=== PATIENT | male | born 1985 | race Caucasian/White ===

== ENCOUNTER 2022-04-05 16:29 | Emergency (ER) | payer OTHER, SELFPAY ==
--- NOTE | ~2022-04-05 | XR_ITS ---
EXAMINATION: XR chest 2V Exam Date/Time: 04/05/2022 16:53 CDT HISTORY: cough X 4days,productive cough,vapes Comparison: None available. RESULT: Lines, tubes, and devices: None. Lungs and pleura: Clear. Cardiomediastinal silhouette: Normal. Other: No acute osseous or upper abdominal finding. IMPRESSION: No acute cardiopulmonary process. Reviewed, dictated and finalized at location K.
[2022-04-05 16:39] VITALS: BP 152/90; PULSE 86; RESP 20; TEMP 36.6; O2SAT 98
--- NOTE | 2022-04-05 16:55 | ED.URI ---
HPI - URI/Sore Throat General Chief Complaint: Upper Respiratory Infection Stated Complaint: Sore Throat,Cough,Congestion Time Seen by Provider: 04/05/22 16:50 History of Present Illness HPI Narrative: Petr Cardona is a 36 yo male with PMH of COVID in December [facility] complaining of severe sore throat and difficulty swallowing and a cough which wakes him up. Symptoms present Last day or 2 and is afebrile; no nausea, vomiting, diarrhea. Has not had covid vaccine Related Data Allergies Allergy/AdvReac Type Severity Reaction Status Date / Time Penicillins AdvReac Mild Hives Verified 04/05/22 16:50 Review of Systems Review of Systems: CONSTITUTIONAL: Denies fever, chills, sweats. EYES: Denies visual changes, redness, discharge. ENT: Denies rhinorrhea, has congestion, has sore throat, otalgia. CARDIOVASCULAR: Denies chest pain, palpitations, edema. RESPIRATORY: Denies dyspnea, wheezing, has cough GASTROINTESTINAL: Denies abdominal pain, nausea, vomiting, diarrhea. GENITOURINARY: Denies dysuria, hematuria, abnormal discharge SKIN: Denies rash or itching. NEUROLOGIC: Denies numbness, or focal weakness. PSYCHIATRIC: Denies anxiety or depression. [facility] Past Medical History Medical History (Updated 04/05/22 @ 17:18 by Natalia Guallpa CNP) Anxiety Hematochezia Obesity Family History Family History Grandparent Family history of type 2 diabetes mellitus Social History Social History Smoking status: Never smoker Alcohol intake: current Substance use: never Substance use type: does not use Gender identity (if verbalized by the patient): Male Comments At time of signature, I agree with nursing past medical, surgical, social and family history. There is no relevant family history pertinent to the presenting complaint. Pressure is elevated at this visit; his primary care doctor and is being observed for multiple potential issues Exam Narrative: GENERAL: This is a well-nourished, well-developed patient, in mild distress. Patient is obese HEAD: normocephalic, atraumatic. EYES: Sclera clear/white. Vision is grossly intact. EARS: External ears normal, auditory canals clear and without drainage, TMs normal without perforation. Hearing grossly intact. NOSE: External nose normal with nasal discharge, nares without redness, has rhinorrhea. THROAT: Mucous membranes moist, posterior pharynx erythema NECK: Neck supple, non-tender CARDIOVASCULAR: Regular rate and rhythm without murmurs, gallops, or rubs. RESPIRATORY: Diminished to auscultation. Breath sounds equal bilaterally. No wheezes, rales, or rhonchi. GASTROINTESTINAL: Not done SKIN: warm, intact with no suspicious lesions or rash, good texture and turgor. NEURO: awake, alert, and oriented to person, place and time. There were no obvious focal neurologic abnormalities. Steady gait EXTREMITIES: Normal range of motion. BACK: Nontender without deformity Course Course Emergency Course: Patient here with cough and congestion and sore throat since yesterday Strep done which is negative COVID - negative Chest x-ray-no acute cardiopulmonary process, cardiomediastinal silhouette normal lung and pleura clear Treat with steroids, albuterol inhaler, Zithromax. ranjan perkins Level of Care: Express Care Visit Vital Signs Vital signs: Vital Signs Temperature 97.9 F 04/05/22 16:39 Pulse Rate 86 04/05/22 16:39 Respiratory Rate 20 04/05/22 16:39 Blood Pressure 152/90 H 04/05/22 16:39 Pulse Oximetry 98 04/05/22 16:39 Oxygen Delivery Room Air 04/05/22 16:39 Temperature 97.9 F 04/05/22 16:39 Pulse Rate 86 04/05/22 16:39 Respiratory Rate 20 04/05/22 16:39 Blood Pressure 152/90 H 04/05/22 16:39 Pulse Oximetry 98 04/05/22 16:39 Oxygen Delivery Room Air 04/05/22 16:39 MDM - URI/Sore Throat Differential
== END 2022-04-05 17:32 | disposition home or self-care (01) ==
PROVIDERS: Emergency Provider Nurse Practitioner; PCP Family Medicine
DX: J20.9 Acute bronchitis, unspecified (principal); J02.9 Acute pharyngitis, unspecified; Z20.822 Contact with and (suspected) exposure to COVID-19; E66.9 Obesity, unspecified; Z68.41 Body mass index [BMI] 40.0-44.9, adult
CPT/HCPCS: 71046; 87081; 87426; 87880; 99213; C9803; G0463

== ENCOUNTER 2023-04-15 15:21 | Emergency (ER) | payer BC, SELFPAY ==
[2023-04-15 15:28] VITALS: BP 138/77; PULSE 119; RESP 20; TEMP 35.8; O2SAT 96
--- NOTE | 2023-04-15 15:38 | ED.SKABFB ---
HPI - Skin/Abscess/Foreign Bdy General Chief complaint: Dental/Oral Stated complaint: Swollen Lip and Jaw,Mouth Sores Time Seen by Provider: 04/15/23 15:24 Source: patient Mode of arrival: ambulatory Limitations: no limitations History of Present Illness HPI narrative: 37-year-old male presents to [facility] with complaint of pain and swelling to his upper gums for the past 2 days. Patient denies fever, body aches or chills. Patient reports that he has not established with a local dentist. Patient has been completing a string gargles and taking [id number] ibuprofen with minimal relief. Patient is a smoker Onset (ago): day(s) (2) Relieving factors: none Exacerbating factors: none Associated symptoms: denies other symptoms Related Data Home Medications Medication Instructions Recorded Confirmed sildenafil 25 mg tablet 25 mg PO DAILY PRN Erectile 04/10/23 04/15/23 Dysfunction Allergies Allergy/AdvReac Type Severity Reaction Status Date / Time Penicillins AdvReac Mild Hives Verified 04/15/23 15:24 Review of Systems Constitutional: Constitutional: Denies chills, Denies fatigue, Denies fever(s) and Denies weakness ENT: Denies vertigo, Denies dizziness, Denies epistaxis and Denies nasal congestion Comments: Upper gum pain and swelling Respiratory: Respiratory: Denies chest congestion, Denies cough, Denies dyspnea and Denies wheezing Gastrointestinal: Gastrointestinal: Denies diarrhea, Denies nausea and Denies vomiting Integumentary/Breasts: Skin/Breast: Denies rash Neurologic: Denies vertigo, Denies dizziness, Denies syncope and Denies headache(s) [facility] Past Medical History Medical History (Updated 04/15/23 @ 15:45 by Antoinette Decker APRN) Anxiety Hematochezia Obesity Family History Family History Grandparent Family history of type 2 diabetes mellitus Social History Social History Smoking status: Current every day smoker Tobacco type: cigarettes Smokeless tobacco user: dissolvable tobacco Alcohol intake: current Substance use: never Substance use type: does not use Lack of Transportation: No Lack of Food: Never True Current Housing: I Have Housing Concerned About Future Housing: No Difficulty Paying Gas/Electric Bills: No Difficulty Paying for Meds: No Currently Unemployed: No Education: Trade/Vocational Certificate Difficulty w/ Childcare or Family Care: No Living arrangements: with family Occupation/Education: occupation Gender identity (if verbalized by the patient): Male Comments At time of signature, I agree with nursing past medical, surgical, social and family history. There is no relevant family history pertinent to the presenting complaint. Exam Const: General: healthy appearing and no acute distress Nutritional Appearance: well nourished Orientation/consciousness: patient oriented x3 Limitations: no limitations HENMT: Head: normal to inspection Teeth and gingiva: abnormal tooth and associated gingiva Throat: posterior oropharynx normal and uvula midline Other: Poor dentition noted; there is area of erythema and swelling noted to upper gums between 1st and 2nd tooth. No bruising, bleeding or purulent drainage noted Eyes: Conjunctivae: conjunctivae normal Resp: Effort & Inspection: normal respiratory effort and not labored Auscultation: clear to auscultation bilaterally, no crackles, no rales, no rhonchi and no wheezes Cardio: Rate: regular rate Rhythm: regular rhythm Heart sounds: no murmurs Skin: General skin exam: normal color Neuro: Speech: normal speech Gait exam (Neuro): Normal gait present Psych: Affect: normal affect Attitude: cooperative Course Course Level of Care: Express Care Visit Vital Signs Vital signs: Vital Signs Temperature 35.8 C L 04/15/23 15:28 Pulse Rate 119 H 04/15/23
== END 2023-04-15 15:48 | disposition home or self-care (01) ==
PROVIDERS: Emergency Provider Nurse Practitioner Family; PCP Family Medicine
DX: K06.1 Gingival enlargement (principal); F17.210 Nicotine dependence, cigarettes, uncomplicated; E66.9 Obesity, unspecified; Z68.42 Body mass index [BMI] 45.0-49.9, adult
CPT/HCPCS: 99213; G0463

== ENCOUNTER 2023-05-28 10:06 | Outpatient (CLI) | payer BC, SELFPAY ==
--- NOTE | 2023-06-05 19:10 | WPDHOMESLEEP ---
Sleep Study - Home Unattended Date of Study: 05/28/23 Ordering Provider: Dawit Abernathy MD Interpreting Provider: Johanny Mai, DO Home Sleep Study Type: Watch PAT Height: 1.63 m Weight: 124.738 kg Body Mass Index: 47.2 Neck Circumference (inches): 18 [place]: 21 Reason for Sleep Study Witnessed apneas, daytime hypersomnia Sleep History The patient is a 37-year-old male that had a sleep study ordered by his primary care for evaluation of sleep apnea. The patient frequently awakens from sleep short of breath. He occasionally awakens at night with heartburn, belching or cough. He constantly snores loudly enough that others complain. He rarely has trouble sleeping when he has a cold. He frequently wakes up gasping for air throughout the night. He frequently has breathing problems at night observed by himself or others. He rarely sweats excessively at night. He denies having heart palpitations or irregular heartbeats during the night. He constantly falls asleep during the day. He occasionally falls asleep while driving. He denies sleep paralysis and cataplexy. He frequently has trouble at school or work due to sleepiness. He frequently experiences vivid dreamlike scenes upon awakening or falling asleep. He denies feeling afraid of going to sleep. He occasionally has nightmares occasionally remembers his dreams. He rarely has thoughts racing through his mind. He denies feeling sad or depressed. He rarely has anxiety. He denies having muscular tension. He occasionally notices parts of his body jerk. He rarely kicks during the night. He rarely has crawling and aching feelings in his legs and rarely has leg pain during the night. He denies grinding his teeth during sleep and denies awakening with morning jaw pain. He is rarely bothered by pain during the day but never awakened by pain during the night. He frequently wakes up feeling stiff in morning. He goes to bed at 10:00 p.m. on weekdays and at midnight on the weekends. It takes him 20-30 minutes to fall asleep. He wakes up 2-3 times throughout the night to urinate and is able fall back asleep within a few minutes. He wakes up at 6:00 a.m. on weekdays and around 10:00 a.m. on the weekends. He typically gets 5-6 hours of sleep per night. He does not stay in bed after waking up in the morning. He currently lives with his and child. He denies consuming any caffeinated beverages within 2 hours of bedtime. He denies engaging in physical exercise before bedtime. He will watch television before falling asleep. He denies taking naps in the afternoon or the evening. He consumes 2 caffeinated beverages per day. He smokes 1.5 packs of cigarettes per day. He does consume alcohol. He denies recreational drug use. [facility] Past Medical History Medical History (Updated 06/05/23 @ 19:20 by Johanny Mai DO) Anxiety Hematochezia Obesity Family History Family History Grandparent Family history of type 2 diabetes mellitus Social History Social History Smoking status: Current every day smoker Tobacco type: cigarettes Smokeless tobacco user: dissolvable tobacco Alcohol intake: current Substance use: never Substance use type: does not use Lack of Transportation: No Lack of Food: Never True Current Housing: I Have Housing Concerned About Future Housing: No Difficulty Paying Gas/Electric Bills: No Difficulty Paying for Meds: No Currently Unemployed: No Education: Trade/Vocational Certificate Difficulty w/ Childcare or Family Care: No Living arrangements: with family Occupation/Education: occupation Gender identity (if verbalized by the patient): Male Medications Home Medications Medication Instructions Recorded Confirmed Type sildenafil 25 mg tablet 25 mg PO DAILY PRN Erectile 04/10/23 05/01/23 His
[2023-06-05 19:11] VITALS: BMI 47.2
--- NOTE | 2023-09-06 13:49 | SLEEP ---
pt has apap device
== END 2023-05-31 16:00 | disposition home or self-care (01) ==
LOC: ANHCSM 10:07
PROVIDERS: PCP Family Medicine; Visit Provider Family Medicine
DX: G47.10 Hypersomnia, unspecified (principal); G47.33 Obstructive sleep apnea (adult) (pediatric)
CPT/HCPCS: 95800

== ENCOUNTER 2024-02-05 16:48 | Emergency (ER) | payer BC, SELFPAY ==
--- NOTE | ~2024-02-05 | CT_ITS ---
EXAMINATION: CT lumbar spine wo con DATE: 02/05/2024 17:23 INDICATION: low back pain with left sciatica pain- no injury . TECHNIQUE: Computed tomography (CT) of the lumbar spine was performed without intravenous contrast. A utomated exposure control and iterative reconstruction technique were employed. The dose-length produ ct was 1151.56 mGy-cm. COMPARISON: None. FINDINGS: 5 nonrib-bearing lumbar-type vertebral bodies. Partial sacralization of S1, rudimentary dis c at S1-S2. Pedicles intact. 2 mm retrolisthesis at L4-5. Vertebral body heights preserved. Multileve l mild disc space narrowing and moderate marginal osteophytosis. Mild facet sclerosis and hypertrophy throughout the lumbar spine. Moderate central canal narrowing at L4-5 and L5-S1. Moderate bilateral neural foraminal narrowing at L4-5 and L5-S1. 3 mm nonobstructing left upper pole calcification. IMPRESSION: No acute fracture or traumatic malalignment in the lumbar spine. S1 is a transitional element. Multilevel degenerative disc disease and facet arthropathy. Minimal grade 1 retrolisthesis at L4-5. M oderate central canal narrowing and moderate bilateral neural foraminal narrowing at L4-5 and L5-S1. No severe central canal or neural foraminal narrowing. Reviewed, dictated and finalized at location K. IMPRESSION: No acute fracture or traumatic malalignment in the lumbar spine. S1 is a transitional element. Multilevel degenerative disc disease and facet arthropathy. Minimal grade 1 ret rolisthesis at L4-5. Moderate central canal narrowing and moderate bilateral ne ural foraminal narrowing at L4-5 and L5-S1. No severe central canal or neural foraminal narrowing.
[2024-02-05 16:49] VITALS: BP 169/103; PULSE 101; RESP 20; TEMP 36.3; O2SAT 98
--- NOTE | 2024-02-05 17:02 | ED.BACK ---
HPI - Back Pain/Injury General Chief Complaint: Back Pain/Injury Stated Complaint: back pain Time Seen by Provider: 02/05/24 16:57 Source: patient Mode of arrival: ambulatory Limitations: no limitations History of Present Illness HPI Narrative: Petr is a 38-year-old year old male patient presenting to the emergency room complaints of severe back pain since Sunday. He denies any known injury. Is having pain is started on the left side of his low back and now has gone to the middle and right side of his low back. Also reporting numbness and burning sensation down his left leg with numbness over the right great toe. Rates his pain currently a 10/10. Pain is worse with sitting and standing has been taking [id number] medications without relief. Denies any history of past back injury or surgeries. Denies any saddle anesthesia or loss of bowel bladder. Related Data Home Medications Medication Instructions Recorded Confirmed sildenafil 25 mg tablet 25 mg PO DAILY PRN Erectile 04/10/23 09/04/23 Dysfunction Allergies Allergy/AdvReac Type Severity Reaction Status Date / Time Penicillins AdvReac Mild Hives Verified 09/04/23 08:31 Review of Systems Review of Systems: Pertinent positives per HPI. Patient denies any fever, chills, rash, headache, visual changes, dizziness, cough, runny nose, sore throat, shortness of breath, chest pain, palpitations, nausea, vomiting, diarrhea, constipation, abdominal pain, or any urinary issues. [facility] Past Medical History Medical History Anxiety BMI 50.0-59.9, adult Hematochezia Obesity Family History Family History Grandparent Family history of type 2 diabetes mellitus Father No problems noted. Mother No problems noted. Sibling No problems noted. Social History Social History Smoking status: Current every day smoker Tobacco type: cigarettes Smokeless tobacco user: dissolvable tobacco Alcohol intake: current Substance use: never Substance use type: does not use Lack of Transportation: No Lack of Food: Never True Current Housing: I Have Housing Concerned About Future Housing: No Difficulty Paying Gas/Electric Bills: No Difficulty Paying for Meds: No Currently Unemployed: No Education: Trade/Vocational Certificate Difficulty w/ Childcare or Family Care: No Living arrangements: with family Occupation/Education: occupation Gender identity (if verbalized by the patient): Male Comments At the time of my signature, I reviewed and agree with the nursing past medical, surgical, social, and family history. There is no relevant family history pertinent to the patient complaint. Exam Narrative: General: Well-developed, well nourished, in no apparent distress Head: Normocephalic, atraumatic. Cardio: Regular rate and rhythm, s1 and s2 normal, no murmur appreciated. Resp: Clear to auscultation bilaterally, no rhonchi, rales, wheezing or rubs. Musculoskeletal: No deformity, tender to palpation to the over the lumbar spine and over the paraspinous musculature in the low back, reports numbness and burning sensation to the right leg with numbness of the right great toe, sensation of the right great toe is dulled to palpation, grossly normal range of motion, muscle strength strong and equal, peripheral pulse strong, no edema, no cyanosis, normal gait and station Course Course Emergency Course: Portions of this record may have been created with voice recognition software. Vital Signs Vital signs: Vital Signs Temperature 36.3 C L 02/05/24 16:49 Pulse Rate 101 H 02/05/24 16:49 Respiratory Rate 20 02/05/24 16:49 Blood Pressure 169/103 H 02/05/24 16:49 Pulse Oximetry 98 02/05/24 16:49 Oxygen Delivery Room Air 02/05/24 16:49
[2024-02-05] MEDS: KETOROLAC (*BKC) 60 MG/2 ML VIAL IM (18:05)
== END 2024-02-05 18:35 | disposition home or self-care (01) ==
PROVIDERS: Emergency Provider Nurse Practitioner Family; PCP Family Medicine
DX: M47.816 Spondylosis without myelopathy or radiculopathy, lumbar region (principal); M48.061 Spinal stenosis, lumbar region without neurogenic claudication; M51.37 Other intervertebral disc degeneration, lumbosacral region; E66.9 Obesity, unspecified; Z68.42 Body mass index [BMI] 45.0-49.9, adult; F17.210 Nicotine dependence, cigarettes, uncomplicated
CPT/HCPCS: 72131; 96372; 99284; J1885

== ENCOUNTER 2024-04-01 13:19 | Emergency (ER) | payer OTHER, BC, SELFPAY ==
--- NOTE | ~2024-04-01 | XR_ITS ---
XR foot LT min 3V Ordering provider: Juan Barragan APRN History: . lateral foot pain/rolled foot today . Comparison: None. FINDINGS: BONES: Fracture of the midshaft of the fifth metatarsal bone JOINT SPACES: Osteoarthritic changes of the talonavicular joint. No tarsal coalition. SOFT TISSUES: Normal. IMPRESSION: Fracture of the midshaft of the fifth metatarsal bone. Reviewed, dictated and finalized at location A.
[2024-04-01 13:42] VITALS: BP 147/89; PULSE 98; RESP 18; TEMP 35.9; O2SAT 97
--- NOTE | 2024-04-01 13:53 | ED.LOWEXIN ---
HPI - Extremity Injury (Lower) General Chief Complaint: Extremity Injury, Lower Stated Complaint: lt foot injury Time Seen by Provider: 04/01/24 13:50 Source: patient Mode of arrival: ambulatory Limitations: no limitations History of Present Illness HPI Narrative: Petr is a 38-year-old male patient presenting to the clinic today with complaints of a left foot injury. He reports he rolled his foot this morning when he tripped over a piece of metal at work. Has is having pain over the dorsal and lateral foot. History of foot drop in this foot Related Data Home Medications Medication Instructions Recorded Confirmed sildenafil 25 mg tablet 25 mg PO DAILY PRN Erectile 04/10/23 04/01/24 Dysfunction Allergies Allergy/AdvReac Type Severity Reaction Status Date / Time Penicillins AdvReac Mild Hives Verified 04/01/24 14:10 Review of Systems Review of Systems: Pertinent positives per HPI. Patient denies any fever, chills, rash, headache, visual changes, dizziness, cough, runny nose, sore throat, shortness of breath, chest pain, palpitations, nausea, vomiting, diarrhea, constipation, abdominal pain, or any urinary issues. [facility] Past Medical History Medical History Anxiety Hematochezia Obesity Family History Family History Grandparent Family history of type 2 diabetes mellitus Father No problems noted. Mother No problems noted. Sibling No problems noted. Social History Social History Smoking status: Current some day smoker Tobacco type: cigarettes Smokeless tobacco user: dissolvable tobacco Alcohol intake: current Substance use: never Substance use type: does not use Lack of Transportation: No Lack of Food: Never True Current Housing: I Have Housing Concerned About Future Housing: No Difficulty Paying Gas/Electric Bills: No Difficulty Paying for Meds: No Currently Unemployed: No Education: Trade/Vocational Certificate Difficulty w/ Childcare or Family Care: No Living arrangements: with family Occupation/Education: occupation Gender identity (if verbalized by the patient): Male Comments At the time of my signature, I reviewed and agree with the nursing past medical, surgical, social, and family history. There is no relevant family history pertinent to the patient complaint. Exam Narrative: General: Well-developed, morbidly obese, in no apparent distress Head: Normocephalic, atraumatic. Cardio: Regular rate and rhythm, s1 and s2 normal, no murmur appreciated. Resp: Clear to auscultation bilaterally, no rhonchi, rales, wheezing or rubs. Musculoskeletal: No deformity,tender to palpation over the left lateral foot and over the dorsal foot, unable to dorsiflex but is able to plantar flex, pain with valgus and varus testing of the foot, muscle strength strong and equal, peripheral pulse strong, no edema, no cyanosis, normal gait and station Course Course Emergency Course: Portions of this record may have been created with voice recognition software. Level of Care: Express Care Visit Vital Signs Vital signs: Vital Signs Temperature 35.9 C L 04/01/24 13:42 Pulse Rate 98 04/01/24 13:42 Respiratory Rate 18 04/01/24 13:42 Blood Pressure 147/89 H 04/01/24 13:42 Pulse Oximetry 97 04/01/24 13:42 Oxygen Delivery Room Air 04/01/24 13:42 Temperature 35.9 C L 04/01/24 13:42 Pulse Rate 98 04/01/24 13:42 Respiratory Rate 18 04/01/24 13:42 Blood Pressure 147/89 H 04/01/24 13:42 Pulse Oximetry 97 04/01/24 13:42 Oxygen Delivery Room Air 04/01/24 13:42 Vital signs reviewed MDM - Extremity Injury (Lower) MDM Narrative Medical decision making narrative: At the time of visit patient is resting comfortably on the exam table. Patient
== END 2024-04-01 14:38 | disposition home or self-care (01) ==
PROVIDERS: Emergency Provider Nurse Practitioner Family; PCP Family Medicine
DX: S92.355A Nondisplaced fracture of fifth metatarsal bone, left foot, initial encounter for closed fracture (principal); W18.49XA Other slipping, tripping and stumbling without falling, initial encounter; Y99.0 Civilian activity done for income or pay; E66.9 Obesity, unspecified; Z68.41 Body mass index [BMI] 40.0-44.9, adult; F17.210 Nicotine dependence, cigarettes, uncomplicated
CPT/HCPCS: 73630; 99214; G0463

== ENCOUNTER 2024-07-08 12:25 | Outpatient (CLI) | payer BC, SELFPAY ==
--- NOTE | ~2024-07-08 | MR_ITS ---
MRI of the lumbar spine Clinical History: Back pain, left foot drop Technique: Axial T2-weighted images, and sagittal T1-weighted, T2-weighted, and T2 fat-sat images wer e acquired. Findings: There is no fracture or subluxation of the lumbar spine. Vertebral bodies maintain normal h eight and alignment. No bone marrow signal abnormality seen. At L1-L2, there is moderate degenerative distended. There is minimal disc bulge and mild facet arthro adebayo. No central canal stenosis or neural foraminal narrowing. At L2-L3, there is mild disc bulge with mild to moderate facet arthropathy. No central canal stenosis . There is mild left neural foraminal narrowing. Right neural foramen preserved. At L3-L4, there is mild degenerative disc narrowing. There is left paracentral disc protrusion. There is moderate facet arthropathy. These factors contribute to moderate spinal canal stenosis/thecal sac compression. There is advanced bilateral neural foraminal compromise. At L4-L5, there is mild degenerative disc narrowing. There is diffuse disc bulge with superimposed ce ntral disc protrusion. There is moderate facet arthropathy. There is mild central canal stenosis/thec al sac compression. There is severe right neural foraminal narrowing, and moderate to severe left steven ral foraminal narrowing. At L5-S1, there is no disc bulge or herniation. There is moderate to advanced facet arthropathy. No c entral canal stenosis. There is preservation neural foramina. Paravertebral soft tissues are unremarkable. Impression: Advanced degenerative spondylitic changes at L3-L4 and L4-L5, as detailed above. Reviewed, dictated and finalized at [facility]. 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
== END 2024-07-08 12:26 | disposition home or self-care (01) ==
PROVIDERS: PCP Family Medicine; Visit Provider Neurological Surgery
DX: M54.50 Low back pain, unspecified (principal); M21.372 Foot drop, left foot
CPT/HCPCS: 72148

== ENCOUNTER 2024-10-01 01:16 | Day surgery (SDC) | payer OTHER, SELFPAY ==
[2024-09-18 10:08] VITALS: BP 144/80; PULSE 88; RESP 16; TEMP 37.2; O2SAT 95; BMI 42.2
--- NOTE | 2024-09-18 10:23 | PC.NURSE ---
Report to the Outpatient Waiting Room, entrance under the green pavilion located off [facility], at time _0600am on date _10/01/24 . Planned Procedure Time: __0730am .? Time changes happen often and if your time is changed the preop area will call you the afternoon before. - You and your visitor will be asked to self-screen and do not enter if you have any COVID symptoms. Please call surgeon if you need to reschedule. - A mask is optional within the hospital at this time. Patients may have clear liquids (water, carbonated beverages, clear teas, apple juice) until 3 hours prior to surgery with a maximum of 20 ounces. - No food from midnight until time of surgery and no smoking. This includes no chewing gum, candy or mints.(04:30) Take only the following medications with a SIP of water on the morning of surgery: ___Amlodipine ___ DO NOT STOP ANY OF YOUR OTHER PRESCRIPTION MEDICATIONS PRIOR TO SURGERY EXCEPT THE FOLLOWING Medications to discontinue per physician None Date to take last dose None Please no make-up, nail azeri, hairspray, perfume, deodorant, or body powder the day of surgery.? No jewelry (including any body piercings) or valuables the day of surgery, leave them at home.? Please take a shower or bath the night before, or the morning of, surgery with an antibacterial soap.? Wear comfortable, loose fitting clothing.? - Jewelry must be removed prior to entering the operating room.? Rings and piercings that are not removed may be cut off. - The hospital will not accept responsibility for valuables.? - Please leave all valuables, including medications, at home the day of surgery. If you are going home after surgery, a licensed chassis driver must drive you home.? - NO public transportation without another adult if you receive anesthesia. - We recommend that an adult stay with you for 24 hours following discharge. - We also recommend that you do not drive, make important decision, drink alcoholic beverages, or take any drugs that were not prescribed by your health care provider for at least 24 hours after your discharge time. Follow any additional instructions given to you from your surgeon. Telephone instructions given to ___patient and asked if any additional questions and then verbalized understanding. Patient advised to call surgeon office or pre surgery nurse liaison [phone] if any additional questions.
--- NOTE | 2024-09-30 13:42 | WPDANESEPPF ---
Anes - Initial Pre Proc Eval Procedure: Operation Date: 10/01/24 07:30 Proposed Procedures p Left L4- 5 Microdiscectomy - Julia Hawk MD Date/Time: 09/30/24 13:42 Surgeon: Julia Hawk MD Pre Op Diagnosis: lumbar disc herniation with radiculopathy Patient Data Age: 39 Gender: M Height: 1.68 m Weight: 118.6 kg Last Vital Signs Temp 99.0 F 09/18/24 10:08 Pulse 88 09/18/24 10:08 Resp 16 09/18/24 10:08 BP 144/80 H 09/18/24 10:08 Pulse Ox 95 09/18/24 10:08 O2 Del Method Room Air 09/18/24 10:08 Allergies Allergy/AdvReac Type Severity Reaction Status Date / Time Penicillins AdvReac Mild Hives Verified 09/18/24 10:06 Home Medications ?Medication ?Instructions ?Recorded ?Confirmed ?Type sildenafil 25 mg tablet 25 mg PO DAILY PRN Erectile 04/10/23 09/18/24 History Dysfunction lisinopril 20 1 tablet PO DAILY #30 tabs 05/14/24 09/18/24 Rx mg-hydrochlorothiazide 25 mg tablet amlodipine 5 mg tablet See Rx Instructions .Route 07/05/24 09/18/24 Rx .COMPLEX #90 tabs Patient hx anesthesia problems: none Family hx anesthesia problems: none Results Review: All pre-operative results and documents have been reviewed as part of the pre-operative evaluation. [facility] Past Medical History Medical History Acquired left foot drop Hematochezia Anxiety Obesity Surgical History Surgical History History of appendectomy History of vasectomy Family History Family History Grandparent Family history of type 2 diabetes mellitus Father No problems noted. Mother No problems noted. Sibling No problems noted. Social History Social History Smoking packs per day: 0.5 Smoking cigarettes per day: 10.0 Years smoked: 23 Smoking pack-years: 11.50 Smoking status: Current every day smoker Tobacco type: cigarettes Smokeless tobacco user: dissolvable tobacco Alcohol intake: current Drinks per week: 5 Alcohol use details: 5 weekly Substance use: never Substance use type: other Other substance usage details: Vapes daily Do You Feel Safe in your Home?: Yes Lack of Transportation: No Lack of Food: Never True Current Housing: I Have Housing Concerned About Future Housing: No Difficulty Paying Gas/Electric Bills: No Difficulty Paying for Meds: No Currently Unemployed: No Education: Trade/Vocational Certificate Difficulty w/ Childcare or Family Care: No Living arrangements: with family Occupation/Education: occupation 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 Informed Consent: The patient's anesthetic plan and its attendant risks and benefits were discussed with the patient/family/POA. Questions were solicited and answers provided to the satisfaction of the patient/family/POA.
[2024-10-01] VITALS (9 sets, daily range): BP systolic 102–152; BP diastolic 58–94; PULSE 80–94; RESP 16–25; TEMP 36.4–36.6; O2SAT 93–97; BMI 41.5
--- NOTE | ~2024-10-01 | XR_ITS ---
INTRAOPERATIVE FLUOROSCOPY: CLINICAL HISTORY: 39 years old Male; LUMBAR MICRODISKECTOMY L4/5 PROCEDURE COMMENTS: Limited intraoperative fluoroscopy of the lumbar spine was performed. CUMULATIVE DOSE: 7.9 mGy FLUOROSCOPY TIME: 5.2 seconds FINDINGS/IMPRESSION: Please refer to operative note for further details. Reviewed, dictated and finalized at location A. MACHINE CRANE OPERATOR
--- OUTSIDE RECORDS SUMMARY | 2024-10-01 01:19 | XMS_ITS | Clinical Summary ---
Author Organization [address] Address [address] [place] [id number] Care Team Providers Care Naval Inspector Name Role Phone No, Physician Primary Care Provider [phone] Allergies Active Allergy Reactions Criticality Noted Date Comments Penicillins Medications sildenafiL, pulm.hypertensio n, (REVATIO) 20 mg tablet TAKE 1 TO 5 TABLETS BY MOUTH ONCE DAILY NEEDED 2 Active albuterol HFA (PROVENTIL HFA,VENTOLIN HFA,PROAIR HFA) 90 mcg/actuation inhalerIndicatio ns:Lower respiratory infection (e.g., bronchitis, pneumonia, pneumonitis, pulmonitis) Inhale 2 puffs every 6 (six) hours as needed for wheezing or shortness of breath 1 each 3 Active azithromycin (ZITHROMAX) 250 mg tabletIndication s:Lower respiratory infection (e.g., bronchitis, pneumonia, pneumonitis, pulmonitis) Take 2 tablets the first day, then 1 tablet daily for 4 days. 6 tablet 3 Active benzonatate (TESSALON) 200 mg capsuleIndicatio ns:Lower respiratory infection (e.g., bronchitis, pneumonia, pneumonitis, pulmonitis) Take 1 capsule (200 mg total) by mouth 3 (three) times a day as needed for cough 30 capsule 3 Active Active Problems Problem Noted Date Diagnosed Date Closed fracture of distal end of radius 07/09/20 14 Social History Tobacco Use Types Packs/Day Years Used Date Smoking Tobacco: Every Day Tobacco Cessation:Ready to Q uit: Not Asked; Counseling Given: Not Answered Personal Safety Answer Date Recorded Getting School Help Needed Not on file 10/31 Sex and Gender Information Value Date Recorded Sex Assigned at Not on file 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 Gender Identity Not on file Sexual Orientation Not on file Obstetrics History Last Filed Vital Signs Vital Sign Reading Time Taken Comments Blood Pressure 154/100 09/14/2022 8:46 AM ELECTRIC LIFT TRUCK DRIVER Pulse 101 09/14/2022 8:46 AM ELECTRIC LIFT TRUCK DRIVER Temperature 36.7 ??C (98.1 ??F) 09/14/2022 8:46 AM CS T Respiratory Rate 18 09/14/2022 8:46 AM ELECTRIC LIFT TRUCK DRIVER Oxygen Saturation 95% 09/14/2022 8:46 AM ELECTRIC LIFT TRUCK DRIVER Inhaled Oxygen Concentration - - Weight 118.8 kg (262 lb) 09/14/2022 8:46 AM ELECTRIC LIFT TRUCK DRIVER Height 162.6 cm (5' 4 ) 09/14/2022 8:46 AM ELECTRIC LIFT TRUCK DRIVER Body Mass Index 44.97 09/14/2022 8:46 AM ELECTRIC LIFT TRUCK DRIVER Plan of Treatment Health Maintenance Due Date Last Done Comments Depression Screening 1985 Hepatitis C Screening 1985 Pneumococcal vaccine <65 (1 of 2 - PCV) 1991 DTaP/Tdap/Td Vaccine (1 - Tdap) 12/23/1997 12/22/1997 Varicella Vaccines (1 of 2 - 13+ 2-dose series) 1998 Regular Well Visit/Exam 18-64 2003 Influenza Vaccine (#1) 2024 2, 07/01/2021, 06/04/2020, Additional history exists HPV Vaccines Aged Out No longer eligi ble based on patient's age to complete this topic Insurance Care Teams Naval Inspector Relationship Specialty Start Date End Date No, Physician PCP - General 09/14/22
--- OUTSIDE RECORDS SUMMARY | 2024-10-01 01:19 | XMS_ITS | Referral Summary ---
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 Gender Identity Not on file Sexual Orientation Not on file Last Filed Vital Signs Vital Sign Reading Time Taken Comments Blood Pressure 154/100 09/14/2022 8:46 AM LEASING MACHINE TENDER Pulse 101 09/14/2022 8:46 AM LEASING MACHINE TENDER Temperature 36.7 ??C (98.1 ??F) 09/14/2022 8:46 AM CS T Respiratory Rate 18 09/14/2022 8:46 AM LEASING MACHINE TENDER Oxygen Saturation 95% 09/14/2022 8:46 AM LEASING MACHINE TENDER Inhaled Oxygen Concentration - - Weight 118.8 kg (262 lb) 09/14/2022 8:46 AM LEASING MACHINE TENDER Height 162.6 cm (5' 4 ) 09/14/2022 8:46 AM LEASING MACHINE TENDER Body Mass Index 44.97 09/14/2022 8:46 AM LEASING MACHINE TENDER Plan of Treatment Not on file Insurance [facility] Care Teams Artist Model Relationship Specialty Start Date End Date No, Physician PCP - General 09/14/22
[2024-10-01] MEDS: LACTATED RINGERS 1,000 ML 30 ML IV CONT ×2 (06:30→09:51)
--- NOTE | 2024-10-01 07:19 | P.HP_ITS ---
H&P: HPI History of Present Illness Date/Time: 10/01/24 07:19 Chief Complaint: lumbar radiculopathy Narrative: From 06/19: Mr. Cardona is a 38-year-old male with history of hypertension who presents for evaluation of a left footdrop. Around February, he had developed low back pain radiating down the back of leg into foot associated with a left footdrop. He went to the emergency room where CT scan was performed, and he was referred to Neurosurgery as an outpatient. He started seeing a chiropractor for his pain symptoms which he has found helpful. At one time, he actually fell and broke his left foot because of his footdrop. Fortunately, all of his symptoms have been improving. He has not had any back or leg pain for at least a month. He does have numbness in the top of his left foot. he feels that the movement of his foot has slowly improved. He has not been requiring AFO or other assistive devices to ambulate. He has otherwise not had any other workup for his footdrop or treatment. From 08/13: He returns today for scheduled follow-up after recent MRI and EMG. He does report more pain in the back as well as in the top of the left foot. He has numbness involving the entire foot. The weakness is stable. He has been doing physical therapy without any significant improvement. He feels that his progress has plateaued. 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 He thinks he can do light duty for a period if needed. [facility] Past Medical History Medical History Acquired left foot drop Hematochezia Anxiety Obesity Surgical History Surgical History History of appendectomy History of vasectomy Family History Family History Grandparent Family history of type 2 diabetes mellitus Father No problems noted. Mother No problems noted. Sibling No problems noted. Social History Social History Smoking packs per day: 0.5 Smoking cigarettes per day: 10.0 Years smoked: 23 Smoking pack-years: 11.50 Smoking status: Current every day smoker Tobacco type: cigarettes Smokeless tobacco user: dissolvable tobacco Alcohol intake: current Drinks per week: 5 Alcohol use details: 5 weekly Substance use: never Substance use type: other Other substance usage details: Vapes daily Do You Feel Safe in your Home?: Yes Lack of Transportation: No Lack of Food: Never True Current Housing: I Have Housing Concerned About Future Housing: No Difficulty Paying Gas/Electric Bills: No Difficulty Paying for Meds: No Currently Unemployed: No Education: Trade/Vocational Certificate Difficulty w/ Childcare or Family Care: No Living arrangements: with family Occupation/Education: occupation 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 Gender identity (if verbalized by the patient): Male Spiritual care concerns: No Meds Home Medications and Allergies Home Medications ?Medication ?Instructions ?Recorded ?Confirmed ?Type sildenafil 25 mg tablet 25 mg PO DAILY PRN Erectile 04/10/23 09/18/24 History Dysfunction lisinopril 20 1 tablet PO DAILY #30 tabs 05/14/24 09/18/24 Rx mg-hydrochlorothiazide 25 mg tablet amlodipine 5 mg tablet See Rx Instructions .Route 07/05/24 09/18/24 Rx .COMPLEX #90 tabs Allergies Allergy/AdvReac Type Severity Reaction Status Date / Time Penicillins AdvReac Mild Hives Verified 09/18/24 10:06 Exam Narrative: Left dorsiflexion 3/5, EHL 2/5 Unable to vonda left foot Decreased sensation to light touch in top of left foot only Negative straight leg raise Negative Tinel's at fibular head Unless otherwise stated above, the patient's physical exam is as follows: General: -Well developed and well nourished. No a cute distress. Cooperative with exam. Mental status: -Awake and oriented to person, place, an d time. Affect is normal. -Fund of knowledge appropriate -Recent and remote memory are intact -Attention span and concentration appear normal -Language function is normal -There is no evidence of aphasia in conv ersational speech. Cranial nerves: -CN II: Visual carrizales full to bedside co nfrontation -CN III, IV, : Pupils equal, round, an d reactive to light; extraocular movements, no ptosis, no nystagmus -CN V: Facial sensation intact in V1 thr ough V3 distributions -CN VII: Face symmetric -CN VIII: Hearing intact to conversation al speech -CN IX, X: Palate elevates symmetrically ; normal phonation -CN XI: Symmetric full strength of story ocleidomastoid and trapezius muscles -CN XII: Tongue protrudes midline Integumentary: -No obvious skin lesions or masses Motor: -Muscle tone normal without spasticity o f flaccidity. No atrophy. No fasciculations. -No pronator drift -Right upper extremity: deltoid 5/5, bic eps 5/5, triceps 5/5, wrist extensors 5/5, wrist flexors 5/5, intrinsics 5/5 -Left upper extremity: deltoid 5/5, ty ps 5/5, triceps 5/5, wrist extensors 5/5, wrist flexors 5/5, intrinsics 5/5 -Right lower extremity: iliopsoas 5/5, q uadriceps 5/5, hamstrings 5/5, tibialis anterior 5/5, gastroc-soleus 5/5, EHL 5/5 -Left lower extremity: iliopsoas 5/5, qu adriceps 5/5, hamstrings 5/5, tibialis anterior 5/5, gastroc-soleus 5/5, EHL 5/5 Sensory: -Intact to light touch throughout -Normal proprioception throughout Reflexes: -1-2+ DTR's throughout -No Ku's, clonus, or Babinski bilat erally Musculoskeletal: -Lumbar spine: no tenderness to palpatio n, no pain, and normal lumbosacral spine movements -Fyjhremk-bus-lejgi test negative -Hip: normal range of motion, no crepitu s bilaterally. No pain reproduced on MARISSA or FAIR testing bilaterally -Knee: no instability, subluxation or la xity, and no crepitus bilaterally I personally viewed the MRI lumbar spine which shows a left sided disc herniation at L4-5 causing severe lateral recess stenosis. He does notably have transitional anatomy at the lumbosacral junction Assessment and Plan Assessment and plan (1) Lumbar disc herniation with radiculopathy: Code(s): M51.16 - Intervertebral disc disorders with radiculopathy, lumbar region Status: Acute Plan Mr. Cardona is a 39-year-old male who developed radicular left leg pain, numbness, and foot drop in February who is a simple wounds were initially improving but have since plateaued. He does continue to have pain in the top of the left foot, paresthesias of the entire foot, and dorsiflexion weakness. He returns today with an MRI confirming a left-sided disc herniation at L4-5 causing severe lateral recess stenosis. He has an EMG confirming a severe left L5 radiculopathy as well. I reviewed these studies with him in clinic. This time, I recommended surgery in the form of left L4-5 microdiskectomy. We discussed surgery in detail including risks, expected recovery, and restrictions after surgery. We discussed that his symptoms will not immediately resolve upon waking from anesthesia, and that he will still require intensive treatment with physical therapy to hasten his recovery. He expressed understanding of all of this and would like to proceed.
--- NOTE | 2024-10-01 07:19 | WPDHPUPDATE1 ---
History and Physical Update Update Date/Time: 10/01/24 07:19 History and Physical has been reviewed, including an updated exam of the patient. There are NO changes in the patient's condition. Risks, benefits, and alternatives have been discussed and questions answered. Patient agrees to proceed with procedure.
[2024-10-01] MEDS: ceFAZolin 2 GM/D5W 50 ML 2 GM/50 ML BAG IVPB (07:30)
[2024-10-01] MEDS: BUPIVACAINE/EPINEPHRINE 0.5% 50 ML VIAL 30 ML INFILTRATE (08:21)
--- NOTE | 2024-10-01 09:46 | P.OPB_ITS ---
Procedure Note - Brief Procedure Note - Brief Date of procedure: 10/01/24 lumbar disc herniation with radiculopathy Post-op diagnosis: Same Procedure performed: Left L4-5 microdiskectomy Use of microscope Use of C-arm Surgeon: Julia Hawk MD Boot Trimmer: Jenae Anesthesia: GETA Findings: Disc herniation found to be compressing traversing nerve root. Nerve root well decompressed at end of procedure Estimated blood loss (mL): 30 Drains: No Packing: No Pathology: None sent Complications: None Condition: Stable Disposition: PACU
--- NOTE | 2024-10-01 09:55 | P.OP_ITS ---
Procedure Note - Detailed Date of Procedure 10/01/24 Pre-op Diagnosis lumbar disc herniation with radiculopathy Post-op Diagnosis Same Procedure Performed 1. Left L4-5 microdiskectomy 2. Use of C-arm for fluoroscopy 3. Use of microscope for microsurgical dissection Surgeon Julia Hawk MD Anesthesia General Description of Procedure The patient was brought to the operating room, and general anesthesia was induced. The patient was placed prone on the Kody frame, and all pressure points were padded. Compression devices were placed on the patient's calves. The skin was cleaned with alcohol. The C-arm was brought onto the field to localize the appropriate disc space and assist with incisional planning. The previous incision was marked. The area was prepped and draped in usual sterile fashion. A time out was conducted, and pre-operative antibiotics were administered. Local anesthesia was injected into the planned incision. A midline skin incision was opened with a 10-blade scalpel, and dissection was carried down with the monopolar cautery to open the fascia on the right side of midline. Once the spinous processes were located, a subperiosteal dissection was performed to expose the lamina on the right, taking care to avoid the facet. A self-retaining retractor was placed. The C-arm was brought in to confirm the correct level. The microscope was draped and brought into the field for microsurgical dissection. The high-speed drill was used to thin the left L4 lamina to the ligamentum flavum. A currette was used to separate the ligament from the bone which was then removed with the Kerrison. The ligamentum was then elevated with a currette and removed. A kerrison was passed along the traversing nerve root and followed distally to remove bone into the foramen. The traversing nerve root was observed to be displaced dorsally by a disc herniation. The nerve root was retracted medially, and the disc was opened with a nerve hook. Small pieces of degenerated disc were removed with a micropituitary. An Kailash and nerve hook were intermittently used to free more disc material which was then removed with a micropituitary. A Woodsen was used to verify adequate decompression at the cranial and caudal aspects of the decompression as well as into the foramen. The nerve returned to its [place] position without further evidence of compression. Hemostasis was ensured with the bipolar, surgiflo, and cottonoids, and the area was copiously irrigated. No evidence of CSF leak was noted. The fascia was closed with 0-Vicryl in an interrupted fashion. The soft tissue was again copiously irrigated. The dermis was closed with 2-0 then 3-0 interrupted Vicryl. The skin was closed with 4-0 monocryl. Skin glue was applied. The patient was returned supine on the stretcher, extubated, and transferred to PACU without incident. Billing codes: 70214, 26149 Estimated Blood Loss 30 Drains No Packing No Pathology None sent Complications No immediate complications Condition Stable Disposition PACU [facility] Billing Surgery - Charge Forward: Surgery Billing
[2024-10-01] MEDS: oxyCODONE HCL (*CRX) 5 MG TAB IR PO (11:11)
== END 2024-10-01 11:50 | disposition home or self-care (01) ==
PROVIDERS: PCP Family Medicine; Visit Provider Neurological Surgery
PROC: (CPT 63030; principal; 2024-10-01 07:30)
DX: M51.16 Intervertebral disc disorders with radiculopathy, lumbar region (principal); F17.210 Nicotine dependence, cigarettes, uncomplicated; F17.290 Nicotine dependence, other tobacco product, uncomplicated; E66.01 Morbid (severe) obesity due to excess calories; Z68.41 Body mass index [BMI] 40.0-44.9, adult
CPT/HCPCS: 63030; 99199; A9270; J0690; J1100; J1171; J2003; J2250; J2704; J3010; J7120

== ENCOUNTER 2024-11-07 16:24 | Emergency (ER) | payer OTHER, SELFPAY ==
--- OUTSIDE RECORDS SUMMARY | 2024-11-07 16:26 | XMS_ITS | Referral Summary ---
Author Organization [address] Address [address] [place] [phone] Care Team Providers Care Is Analyst Name Role Phone No, Physician Primary Care Provider [phone] Allergies Active Allergy Reactions Criticality Noted Date [...] on file Legal Sex Male 1:18 PM PAPER SALES REPRESENTATIVE Gender Identity Not on file Sexual Orientation Not on file Last Filed Vital Signs Vital Sign Reading Time Taken Comments Blood Pressure 154/100 09/14/2022 8:46 AM PAPER SALES REPRESENTATIVE Pulse 101 09/14/2022 8:46 AM PAPER SALES REPRESENTATIVE Temperature 36.7 C (98.1 F) 09/14/2022 8:46 AM PAPER SALES REPRESENTATIVE Respiratory Rate 18 09/14/2022 8:46 AM PAPER SALES REPRESENTATIVE Oxygen Saturation 95% 09/14/2022 8:46 AM PAPER SALES REPRESENTATIVE Inhaled Oxygen Concentration - - Weight 118.8 kg (262 lb) 09/14/2022 8:46 AM PAPER SALES REPRESENTATIVE Height 162.6 cm (5' 4 ) 09/14/2022 8:46 AM PAPER SALES REPRESENTATIVE Body Mass Index 44.97 09/14/2022 8:46 AM PAPER SALES REPRESENTATIVE Plan of Treatment Not on file Insurance [facility] Care Teams Is Analyst Relationship Specialty Start Date End Date No, Physician PCP - General 09/14/22
--- OUTSIDE RECORDS SUMMARY | 2024-11-07 16:26 | XMS_ITS | Clinical Summary ---
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 Gender Identity Not on file Sexual Orientation Not on file Obstetrics History Last Filed Vital Signs Vital Sign Reading Time Taken Comments Blood Pressure 154/100 09/14/2022 8:46 AM TANK BUILDER SUPERVISOR Pulse 101 09/14/2022 8:46 AM TANK BUILDER SUPERVISOR Temperature 36.7 C (98.1 F) 09/14/2022 8:46 AM TANK BUILDER SUPERVISOR Respiratory Rate 18 09/14/2022 8:46 AM TANK BUILDER SUPERVISOR Oxygen Saturation 95% 09/14/2022 8:46 AM TANK BUILDER SUPERVISOR Inhaled Oxygen Concentration - - Weight 118.8 kg (262 lb) 09/14/2022 8:46 AM TANK BUILDER SUPERVISOR Height 162.6 cm (5' 4 ) 09/14/2022 8:46 AM TANK BUILDER SUPERVISOR Body Mass Index 44.97 09/14/2022 8:46 AM TANK BUILDER SUPERVISOR Plan of Treatment Health Maintenance Due Date Last Done Comments Depression Screening 1985 Hepatitis C Screening 1985 DTaP/Tdap/Td Vaccine (1 - Tdap) 12/23/1997 12/22/1997 Varicella Vaccines (1 of 2 - 13+ 2-dose series) 1998 Regular Well Visit/Exam 18-64 2003 Pneumococcal vaccine <65 (1 of 2 - PCV) 2004 Influenza Vaccine (#1) 2024 , 07/01/2021, 06/04/2020, Additional history exists Hepatitis B Screening Completed 02/27/2000, 996 HPV Vaccines Aged Out No longer eligi ble based on patient's age to complete this topic Insurance Care Teams Hair Machine Operator Relationship Specialty Start Date End Date No, Physician PCP - General 09/14/22
--- NOTE | 2024-11-07 16:38 | PC.NURSE ---
Patient left department before triage
--- NOTE | 2024-11-07 17:03 | PC.NURSE ---
Patient did not answer page X2 for triage
== END 2024-11-07 17:03 | disposition left against medical advice (07) ==
PROVIDERS: PCP Family Medicine
DX: Z53.21 Procedure and treatment not carried out due to patient leaving prior to being seen by health care provider (principal)
CPT/HCPCS: 99199

== ENCOUNTER 2024-11-08 05:44 | Emergency (ER) | payer OTHER, SELFPAY ==
[2024-11-08 05:45] VITALS: BP 148/88; PULSE 100; RESP 17; TEMP 36.6; O2SAT 96
--- OUTSIDE RECORDS SUMMARY | 2024-11-08 05:46 | XMS_ITS | Referral Summary ---
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 Gender Identity Not on file Sexual Orientation Not on file Last Filed Vital Signs Vital Sign Reading Time Taken Comments Blood Pressure 154/100 09/14/2022 8:46 AM MASTER COSMETOLOGIST Pulse 101 09/14/2022 8:46 AM MASTER COSMETOLOGIST Temperature 36.7 C (98.1 F) 09/14/2022 8:46 AM MASTER COSMETOLOGIST Respiratory Rate 18 09/14/2022 8:46 AM MASTER COSMETOLOGIST Oxygen Saturation 95% 09/14/2022 8:46 AM MASTER COSMETOLOGIST Inhaled Oxygen Concentration - - Weight 118.8 kg (262 lb) 09/14/2022 8:46 AM MASTER COSMETOLOGIST Height 162.6 cm (5' 4 ) 09/14/2022 8:46 AM MASTER COSMETOLOGIST Body Mass Index 44.97 09/14/2022 8:46 AM MASTER COSMETOLOGIST Plan of Treatment Not on file Insurance [facility] Care Teams Open Cut Examiner Relationship Specialty Start Date End Date No, Physician PCP - General 09/14/22
--- OUTSIDE RECORDS SUMMARY | 2024-11-08 05:46 | XMS_ITS | Clinical Summary ---
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 COORDINATOR Gender Identity Not on file Sexual Orientation Not on file Obstetrics History Last Filed Vital Signs Vital Sign Reading Time Taken Comments Blood Pressure 154/100 09/14/2022 8:46 AM NIGHT COORDINATOR Pulse 101 09/14/2022 8:46 AM NIGHT COORDINATOR Temperature 36.7 C (98.1 F) 09/14/2022 8:46 AM NIGHT COORDINATOR Respiratory Rate 18 09/14/2022 8:46 AM NIGHT COORDINATOR Oxygen Saturation 95% 09/14/2022 8:46 AM NIGHT COORDINATOR Inhaled Oxygen Concentration - - Weight 118.8 kg (262 lb) 09/14/2022 8:46 AM NIGHT COORDINATOR Height 162.6 cm (5' 4 ) 09/14/2022 8:46 AM NIGHT COORDINATOR Body Mass Index 44.97 09/14/2022 8:46 AM NIGHT COORDINATOR Plan of Treatment Health Maintenance Due Date [...] to complete this topic Insurance Care Teams Neon Sign Servicer Relationship Specialty Start Date End Date No, Physician PCP - General 09/14/22
--- OUTSIDE RECORDS SUMMARY | 2024-11-08 07:16 | XMS_ITS | Referral Summary ---
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 Gender Identity Not on file Sexual Orientation Not on file Last Filed Vital Signs Vital Sign Reading Time Taken Comments Blood Pressure 154/100 09/14/2022 8:46 AM PUNCHER AND FASTENER Pulse 101 09/14/2022 8:46 AM PUNCHER AND FASTENER Temperature 36.7 C (98.1 F) 09/14/2022 8:46 AM PUNCHER AND FASTENER Respiratory Rate 18 09/14/2022 8:46 AM PUNCHER AND FASTENER Oxygen Saturation 95% 09/14/2022 8:46 AM PUNCHER AND FASTENER Inhaled Oxygen Concentration - - Weight 118.8 kg (262 lb) 09/14/2022 8:46 AM PUNCHER AND FASTENER Height 162.6 cm (5' 4 ) 09/14/2022 8:46 AM PUNCHER AND FASTENER Body Mass Index 44.97 09/14/2022 8:46 AM PUNCHER AND FASTENER Plan of Treatment Not on file Insurance [facility] Care Teams Photonic Laboratory Technician Relationship Specialty Start Date End Date No, Physician PCP - General 09/14/22
--- OUTSIDE RECORDS SUMMARY | 2024-11-08 07:16 | XMS_ITS | Clinical Summary ---
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 Gender Identity Not on file Sexual Orientation Not on file Obstetrics History Last Filed Vital Signs Vital Sign Reading Time Taken Comments Blood Pressure 154/100 09/14/2022 8:46 AM HAIR ASSISTANT Pulse 101 09/14/2022 8:46 AM HAIR ASSISTANT Temperature 36.7 C (98.1 F) 09/14/2022 8:46 AM HAIR ASSISTANT Respiratory Rate 18 09/14/2022 8:46 AM HAIR ASSISTANT Oxygen Saturation 95% 09/14/2022 8:46 AM HAIR ASSISTANT Inhaled Oxygen Concentration - - Weight 118.8 kg (262 lb) 09/14/2022 8:46 AM HAIR ASSISTANT Height 162.6 cm (5' 4 ) 09/14/2022 8:46 AM HAIR ASSISTANT Body Mass Index 44.97 09/14/2022 8:46 AM HAIR ASSISTANT Plan of Treatment Health Maintenance Due Date [...] to complete this topic Insurance Care Teams Revenue Settlements Administrator Relationship Specialty Start Date End Date No, Physician PCP - General 09/14/22
--- NOTE | 2024-11-08 07:19 | ED.GENADULT ---
HPI - General Adult General Chief complaint: Skin/Abscess/Foreign Body Stated complaint: cyst on top of butt Time Seen by Provider: 11/08/24 06:55 History of Present Illness HPI narrative: 39-year-old male presents emergency department for evaluation for a pilonidal cyst. Patient does have prior history pilonidal cyst. Patient states that was drained approximately 20 years ago. Patient began having swelling on 11/05 and his spouse helped to express drainage from it on 11/07. She states that she was able to get a lot of drainage out of it. Related Data Home Medications ?Medication ?Instructions ?Recorded ?Confirmed ?Last Taken ?Type sildenafil 25 mg tablet 25 mg PO DAILY PRN Erectile 04/10/23 09/18/24 09/18/24 History Dysfunction Allergies Allergy/AdvReac Type Severity Reaction Status Date / Time Penicillins AdvReac Mild Hives Verified 11/08/24 05:45 Review of Systems Review of Systems: All systems reviewed & are unremarkable except as noted in HPI and below PMFSH Past Medical History Medical History Acquired left foot drop Hematochezia Anxiety Obesity Surgical History Surgical History History of appendectomy History of vasectomy Family History Family History Grandparent Family history of type 2 diabetes mellitus Father No problems noted. Mother No problems noted. Sibling No problems noted. Social History Social History Smoking packs per day: 0.5 Smoking cigarettes per day: 10.0 Years smoked: 23 Smoking pack-years: 11.50 Smoking status: Current every day smoker Tobacco type: cigarettes Smokeless tobacco user: dissolvable tobacco Alcohol intake: current Drinks per week: 5 Alcohol use details: 5 weekly Substance use: never Substance use type: other Other substance usage details: Vapes daily Do You Feel Safe in your Home?: Yes Lack of Transportation: No Lack of Food: Never True Current Housing: I Have Housing Concerned About Future Housing: No Difficulty Paying Gas/Electric Bills: No Difficulty Paying for Meds: No Currently Unemployed: No Education: Trade/Vocational Certificate Difficulty w/ Childcare or Family Care: No Living arrangements: with family 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 HEAD: normocephalic, atraumatic. EYES: PERRLA/EOMI, conjunctivae clear. NOSE: Normal no drainage EARS:TMS clear with good light reflex. THROAT: Pharynx clear, no exudate. NECK: Supple. No adenopathy, no masses. RESPIRATORY: Airway patent, respirations nonlabored. Clear to auscultation bilaterally, no rales, rhonchi, wheezing. CARDIOVASCULAR: Regular rate and rhythm without murmurs rubs or gallops. ABDOMINAL: Soft, nontender, nondistended, normal bowel sounds MUSCULOSKELETAL: Moves all extremities. Strength/ROM intact, No edema, No calf tenderness. NEURO: Alert. Cranial nerves II through XII intact. Grossly intact SKIN: Pilonidal cyst at the superior gluteal cleft, minimal overlying erythema, no abscess amenable to drainage by bedside ultrasound. Course Vital Signs Vital signs: Vital Signs Temperature 97.8 F 11/08/24 05:45 Pulse Rate 100 11/08/24 05:45 Respiratory Rate 17 11/08/24 05:45 Blood Pressure 148/88 H 11/08/24 05:45 Pulse Oximetry 96 11/08/24 05:45 Oxygen Delivery Room Air 11/08/24 05:45 Temperature 97.8 F 11/08/24 05:45 Pulse Rate 100 11/08/24 05:45 Respiratory Rate 17 11/08/24 05:45 Blood Pressure 148/88 H 11/08/24 05:45 Pulse Oximetry 96 11/08/24 05:45 Oxygen Delivery Room Air 11/08/24 05:45 Medical Decision Making MDM Narrative Medical decision making narrative: 39-year-old male presenting to the emergency department for evaluation for a pilonidal cyst. Patient had no tenderness to palpation at the site of the cyst. Patient did have overlying erythema and firmness to the region but no abscess amenable to drainage by bedside ultrasound. Patient does have a penicillin allergy. Patient will be started on Bactrim. Patient was encouraged to have close follow-up with primary care physician to be set up for definitive surgical treatment movable of the cyst. All questions concerns were addressed. Differential Diagnosis Differential Diagnosis: Abscess, pilonidal cyst, cellulitis Vital Signs Vital Signs: Vital Signs Temperature 97.8 F 11/08/24 05:45 Pulse Rate 100 11/08/24 05:45 Respiratory Rate 17 11/08/24 05:45 Blood Pressure 148/88 H 11/08/24 05:45 Pulse Oximetry 96 11/08/24 05:45 Oxygen Delivery Room Air 11/08/24 05:45 Temperature 97.8 F 11/08/24 05:45 Pulse Rate 100 11/08/24 05:45 Respiratory Rate 17 11/08/24 05:45 Blood Pressure 148/88 H 11/08/24 05:45 Pulse Oximetry 96 11/08/24 05:45 Oxygen Delivery Room Air 11/08/24 05:45 Discharge Plan Discharge Clinical Impression: History of pilonidal cyst Patient Disposition: Home, Self-Care Condition: Stable Instructions: Antibiotic Form, Pilonidal Cyst (ED) Additional Instructions: Antibiotic as directed until completed. Have close follow-up with your primary care physician to help arrange surgical removal of the cyst. Patient Language: Romanian Prescriptions: New sulfamethoxazole-trimethoprim [Bactrim DS] 800-160 mg tablet 1 tablet PO Q12H 7 Days Qty: 14 0RF No Action sildenafil 25 mg tablet 25 mg PO DAILY PRN (Reason: Erectile Dysfunction) Rx Instructions: administer 30 minutes to 4 hours before activity lisinopril-hydrochlorothiazide 20-25 mg tablet 1 tablet PO DAILY Qty: 30 4RF amlodipine 5 mg tablet See Rx Instructions .ROUTE .COMPLEX Qty: 90 0RF Dose Instruction: Take 1 tablet by mouth once daily Rx Instructions: Take 1 tablet by mouth once daily Follow-up/Referrals: Dawit Abernathy MD [Primary Care Provider] -
== END 2024-11-08 07:44 | disposition home or self-care (01) ==
PROVIDERS: Emergency Provider Emergency Medicine; PCP Family Medicine
DX: L05.91 Pilonidal cyst without abscess (principal); E66.9 Obesity, unspecified; Z68.41 Body mass index [BMI] 40.0-44.9, adult; F17.210 Nicotine dependence, cigarettes, uncomplicated; Z79.899 Other long term (current) drug therapy
CPT/HCPCS: 99283

== ENCOUNTER 2025-02-11 12:33 | Outpatient (CLI) | payer OTHER, SELFPAY ==
--- NOTE | ~2025-02-11 | MR_ITS ---
MRI of the lumbar spine Clinical History: Radiculopathy Technique: Axial T2-weighted images, and sagittal T1-weighted, T2-weighted, and and T2 fat-sat images were acquired. COMPARISON: 07/08/2024 Findings: No acute fracture or subluxation seen. Osseous alignment is unchanged from prior exam. No b one marrow signal abnormality seen. At L1-L2, there is mild disc desiccation. There is minimal facet arthropathy. No spinal canal stenosi s or neural foraminal narrowing. At L2-L3, there is minimal disc bulge and moderate facet arthropathy. No central canal stenosis. Ther e is mild to moderate left neural foraminal narrowing. Right neural foramen preserved. At L3-L4, there is degenerative disc narrowing with disc bulge and facet arthropathy. There is severe spinal canal stenosis/thecal sac compression. There is severe bilateral neural foraminal narrowing, left worse than right. At L4-L5, there is mild diffuse disc bulge with mild to moderate facet arthropathy. There is severe s ed canal stenosis/thecal sac compression. There is severe bilateral neural foraminal compromise. At L5-S1, there is no disc bulge or herniation. There is moderate facet arthropathy. No central canal stenosis. There is preservation of the neural foramina. Paravertebral soft tissues demonstrate evidence of prior lumbar surgery. Probable prior partial shamar ectomy at L3-L4. Impression: Advanced degenerative spondylosis at L3-L4, L4-L5. Please see details above. Mild to moderate degenerative change in the remainder of the lumbar spine. Reviewed, dictated and finalized at [facility]. Impression: Advanced degenerative spondylosis at L3-L4, L4-L5. Please see details above. Mild to moderate degenerative change in the remainder of the lumbar spine.
== END 2025-02-11 12:34 | disposition home or self-care (01) ==
LOC: GOSHIMG 12:33
PROVIDERS: PCP Neurological Surgery; Visit Provider Neurological Surgery
DX: M47.896 Other spondylosis, lumbar region (principal)
CPT/HCPCS: 72148

== ENCOUNTER 2025-04-09 07:55 | Outpatient (CLI) | payer OTHER, SELFPAY ==
--- NOTE | ~2025-04-09 | XR_ITS ---
EXAMINATION: XR chest 2V 04/09/2025 09:14 INDICATION: Spinal stenosis. PROCEDURE: 2 view chest COMPARISON: 04/05/2022 FINDINGS: The lungs are clear. The cardiomediastinal silhouette is within normal limits. There are no pleural effusions. There is no pneumothorax suspected. IMPRESSION: 1: NO ACUTE CARDIOPULMONARY DISEASE. Reviewed, dictated and finalized at location A.
--- OUTSIDE RECORDS SUMMARY | 2025-04-09 08:01 | XMS_ITS | Clinical Summary ---
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 Gender Identity Not on file Sexual Orientation Not on file Obstetrics History Last Filed Vital Signs Vital Sign Reading Time Taken Comments Blood Pressure 154/100 09/14/2022 8:46 AM BICYCLE COURIER Pulse 101 09/14/2022 8:46 AM BICYCLE COURIER Temperature 36.7 C (98.1 F) 09/14/2022 8:46 AM BICYCLE COURIER Respiratory Rate 18 09/14/2022 8:46 AM BICYCLE COURIER Oxygen Saturation 95% 09/14/2022 8:46 AM BICYCLE COURIER Inhaled Oxygen Concentration - - Weight 118.8 kg (262 lb) 09/14/2022 8:46 AM BICYCLE COURIER Height 162.6 cm (5' 4) 09/14/2022 8:46 AM BICYCLE COURIER Body Mass Index 44.97 09/14/2022 8:46 AM BICYCLE COURIER Plan of Treatment Health Maintenance Due Date Last Done Comments Depression Screening 1985 Hepatitis C Screening 1985 DTaP/Tdap/Td Vaccine (1 - Tdap) 12/23/1997 8 Varicella Vaccines (1 of 2 - 13+ 2-dose series) 1998 Regular Well Visit/Exam 18-64 2003 Pneumococcal vaccine <65 (1 of 2 - PCV) 2004 HPV Vaccines (1 - 3-dose SCD M series) 2012 Influenza Vaccine (#1) 2025 2, 07/01/2021, 06/04/2020, Additional history exists Hepatitis B Screening Completed 02/27/2000, 996 Insurance Care Teams Sausage Maker Relationship Specialty Start Date End Date No, Physician PCP - General 09/14/22
[2025-04-09 09:47] LABS: Hematocrit 45.1 % (42.0-52.0); Hemoglobin 15.7 g/dL (14.0-18.0); Mean Corpuscular HGB Conc 34.8 g/dl (32-36); Mean Corpuscular Hemoglobin 29.2 pg (26-34); Mean Corpuscular Volume 84.0 fl (80-100); Platelet Count Result 303 k/mm3 (150-375); Red Blood Count 5.37 M/mm3 (4.6-6.20); White Blood Count 15.7 K/mm3 (4.5-10.0)
[2025-04-09 09:49] LABS: Add Urine Microscopic? NO; Appearance Urine Clear (Clear); Glucose Urine UA Negative (Negative); Leukocyte Esterase Ur Negative LEU/UL (Negative); Nitrate Urine Negative (Negative); Specific Grav Ur 1.024 (1.001-1.035)
[2025-04-09 10:04] LABS: INR 1.0; Prothrombin Time 13.1 Seconds (11.1-14.7)
[2025-04-09 10:05] LABS: Partial Thromboplastin Time 26.5 Seconds (22.3-36.8)
[2025-04-09 10:12] LABS: Anion Gap 11 mmol/L (4-12); Blood Urea Nitrogen 19 mg/dL (9-20); Calcium 9.6 mg/dL (8.4-10.2); Carbon Dioxide 23 mmol/L (22-30); Chloride 103 mmol/L (98-107); Estimated Glomerular Filt Rate > 60; Glucose 82 mg/dL (65-110); Potassium 3.8 mmol/L (3.4-5.0); Sodium 137 mmol/L (137-145)
== END 2025-04-09 07:56 | disposition home or self-care (01) ==
LOC: ANHSURGERY 07:58
PROVIDERS: PCP Family Medicine; Visit Provider Neurological Surgery
DX: M48.061 Spinal stenosis, lumbar region without neurogenic claudication (principal); Z01.818 Encounter for other preprocedural examination
CPT/HCPCS: 36415; 71046; 80048; 81003; 85027; 85610; 85730

== ENCOUNTER 2025-04-22 03:39 | Day surgery (SDC) | payer OTHER, SELFPAY ==
[2025-04-09 08:05] VITALS: BP 132/72; PULSE 91; RESP 16; TEMP 36.8; O2SAT 95; BMI 44.7
--- NOTE | 2025-04-09 08:18 | PC.NURSE ---
Report to the Outpatient Waiting Room, entrance under the green pavilion located off [facility], at time __6:00AM___ on date __04/22/25___. Planned Procedure Time: __7:30AM____.? Time changes happen often and if your time is changed the preop area will call you the afternoon before. - You and your visitor will be asked to self-screen and do not enter if you have any COVID symptoms. Please call surgeon if you need to reschedule. - A mask is optional within the hospital at this time. Patients may have clear liquids (water, carbonated beverages, clear teas, apple juice) until 3 hours prior to surgery (4:30AM) with a maximum of 20 ounces. - No food from midnight until time of surgery and no smoking, or chewing tobacco (or any form of nicotine). No chewing gum, candy or mints. Take only the following medications with a SIP of water on the morning of surgery: ___AMLODIPINE DO NOT STOP ANY OF YOUR OTHER PRESCRIPTION MEDICATIONS PRIOR TO SURGERY EXCEPT THE FOLLOWING Hold all vitamins and supplements for 3 days per anesthesiologist. Medications to discontinue per physician ____HOLD ZEPBOUND 10 DAYS PRE-OP PER ANESTHESIA__ Date to take last dose 04/11/25 Please no make-up, nail divehi, hairspray, perfume, deodorant, or body powder the day of surgery.? No jewelry (including any body piercings) or valuables the day of surgery, leave them at home.? Please take a shower or bath the night before, or the morning of, surgery with an antibacterial soap.? Wear comfortable, loose fitting clothing.? - Jewelry must be removed prior to entering the operating room.? Rings and piercings that are not removed may be cut off. - The hospital will not accept responsibility for valuables.? - Please leave all valuables, including medications, at home the day of surgery. If you are going home after surgery, a licensed professional driver must drive you home.? - NO public transportation without another adult if you receive anesthesia. - We recommend that an adult stay with you for 24 hours following discharge. - We also recommend that you do not drive, make important decision, drink alcoholic beverages, or take any drugs that were not prescribed by your health care provider for at least 24 hours after your discharge time. Follow any additional instructions given to you from your surgeon. Telephone instructions given to ____PATIENT and asked if any additional questions and then verbalized understanding. Patient advised to call surgeon office or pre surgery nurse liaison [phone] if any additional questions.
[2025-04-22] VITALS (8 sets, daily range): BP systolic 80–130; BP diastolic 45–83; PULSE 67–92; RESP 13–20; TEMP 36.3–36.5; O2SAT 93–99
--- NOTE | ~2025-04-22 | XR_ITS ---
EXAMINATION: XR fluoroscopy no charge DATE: 04/22/2025 09:56 INDICATION: L4-L5 laminectomy TECHNIQUE: 3 fluoroscopic images of the lower lumbar spine were obtained during procedure performed by Dr. Hawk. Radiologist was not present for the imaging or procedure. The amount of fluoroscopy time used during this procedure was 0.1 minutes. Total DAP was 1.282 Gycm^2. COMPARISON: None. FINDINGS: Images demonstrate tissue retractor, lucent gas and a sponge markers at the operative bed posterior to the lower lumbar spine at the level of L4-L5. The tip of a metallic probe projects deeper along the posterior margin of the L4-L5 and subsequently the L5-S1 facet joints. IMPRESSION: 1. Fluoroscopy utilized during neurosurgical procedure at the lower lumbar spine. See procedure note for further detail. Reviewed, dictated and finalized at location A. IMPRESSION: 1. Fluoroscopy utilized during neurosurgical procedure at the lower lumbar spin e. See procedure note for further detail.
[2025-04-22] MEDS: LACTATED RINGERS 1,000 ML 30 ML IV CONT ×2 (07:00→09:50)
--- NOTE | 2025-04-22 07:03 | P.PNAN_ITS ---
Anes - Initial Pre Proc Eval Procedure: Operation Date: 04/22/25 07:30 Proposed Procedures p L4-L5 Laminectomy, Possible Revision of Left Microdiscectomy - Julia Hawk MD Date/Time: 04/22/25 07:03 Surgeon: Julia Hawk MD Pre Op Diagnosis: left foot drop, spinal stenosis with radiculopathy Patient Data Age: 39 Gender: M Height: 1.63 m Weight: 118.3 kg Last Vital Signs Temp 36.8 C 04/09/25 08:05 Pulse 91 04/09/25 08:05 Resp 16 04/09/25 08:05 BP 132/72 04/09/25 08:05 Pulse Ox 95 04/09/25 08:05 O2 Del Method Room Air 04/09/25 08:05 Allergies Allergy/AdvReac Type Severity Reaction Status Date / Time Penicillins Allergy Mild Hives Verified 04/22/25 06:08 Home Medications ?Medication ?Instructions ?Recorded ?Confirmed ?Type sildenafil 25 mg tablet 25 mg PO DAILY PRN Erectile 04/10/23 04/16/25 History Dysfunction amlodipine 5 mg tablet See Rx Instructions .Route 0 11/09/24 04/22/25 Rx .COMPLEX #90 tabs lisinopril 20 1 tablet PO DAILY #30 tabs 0 03/16/25 04/22/25 Rx mg-hydrochlorothiazide 25 mg tablet tirzepatide (weight loss) 7.5 7.5 mg (0.5 mL) subcut W EEKLY #2 mL 04/08/25 04/22/25 Rx mg/0.5 mL subcutaneous pen injector (Zepbound) mupirocin 2 % topical ointment 1 applic topical BID #2 2 grams 04/16/25 04/22/25 Rx (Centany) clindamycin HCl 300 mg capsule mg PO Q6H 04/22/25 His tory Patient hx anesthesia problems: none Family hx anesthesia problems: none Results Review: All pre-operative results and documents have been reviewed as part of the pre- operative evaluation. [facility] Past Medical History Medical History (Updated 04/21/25 @ 14:42 by Ovidio Cardoza DO) SHIMA (obstructive sleep apnea) Hypertension Acquired left foot drop Hematochezia Anxiety Obesity Surgical History Surgical History History of appendectomy History of vasectomy Family History Family History Grandparent Family history of type 2 diabetes mellitus Father No problems noted. Mother No problems noted. Sibling No problems noted. Social History Social History Smoking packs per day: 1 Smoking cigarettes per day: 20.0 Years smoked: 20 Smoking pack-years: 20.00 Smoking status: Current every day smoker Tobacco type: cigarettes Smokeless tobacco user: dissolvable tobacco Alcohol intake: current Drinks per week: 5 Alcohol use details: 5 weekly Substance use: current Substance use type: other Other substance usage details: Vapes daily Do You Feel Safe in your Home?: Yes Lack of Transportation: No Lack of Food: Never True Current Housing: I Have Housing Concerned About Future Housing: No Difficulty Paying Gas/Electric Bills: No Difficulty Paying for Meds: No Currently Unemployed: No Education: Trade/Vocational Certificate Difficulty w/ Childcare or Family Care: No Living arrangements: with family Additional living arrangements comments: SPOUSE AND CHILD Occupation/Education: occupation 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 Informed Consent: The patient's anesthetic plan and its attendant risks and benefits were discussed with the patient/family/POA. Questions were solicited and answers provided to the satisfaction of the patient/family/POA.
--- NOTE | 2025-04-22 07:14 | WPDHPUPDATE1 ---
History and Physical Update Update Date/Time: 04/22/25 07:14 History and Physical has been reviewed, including an updated exam of the patient. There are NO changes in the patient's condition. Risks, benefits, and alternatives have been discussed and questions answered. Patient agrees to proceed with procedure.
--- NOTE | 2025-04-22 07:15 | P.HP_ITS ---
H&P: HPI History of Present Illness Date/Time: 04/22/25 07:15 Chief Complaint: leg pain Narrative: From 01/15: Mr. Cardona is a 39-year-old male who underwent a left L4-5 microdiskectomy on October 01 who is here today for scheduled follow-up. He was doing well until about 2 weeks ago when he developed recurrence of pain in the lateral aspect of his left calf into the lateral foot. He denies any obvious inciting event. He has no pain in his back or in his thigh. The numbness in his foot is about the same. The strength in his foot has been stable and has not changed with the recurrence of his pain. He had been doing physical therapy which he stopped once his pain returned. The Medrol Dosepak was mildly helpful for him. From 03/05: He returns today to follow-up his recent imaging. He continues to have pain in the lateral aspect of the leg below the knee that can radiate into the ankle. His left foot function is unchanged. He has not had any falls since I saw him last. He denies any right-sided symptoms. Review of Systems Review of Systems: All systems reviewed & are unremarkable except as noted in HPI and below PMFSH Past Medical History Medical History (Updated 04/21/25 @ 14:42 by Ovidio Cardoza DO) SHIMA (obstructive sleep apnea) Hypertension Acquired left foot drop Hematochezia Anxiety Obesity Surgical History Surgical History History of appendectomy History of vasectomy Family History Family History Grandparent Family history of type 2 diabetes mellitus Father No problems noted. Mother No problems noted. Sibling No problems noted. Social History Social History Smoking packs per day: 1 Smoking cigarettes per day: 20.0 Years smoked: 20 Smoking pack-years: 20.00 Smoking status: Current every day smoker Tobacco type: cigarettes Smokeless tobacco user: dissolvable tobacco Alcohol intake: current Drinks per week: 5 Alcohol use details: 5 weekly Substance use: current Substance use type: other Other substance usage details: Vapes daily Do You Feel Safe in your Home?: Yes Lack of Transportation: No Lack of Food: Never True Current Housing: I Have Housing Concerned About Future Housing: No Difficulty Paying Gas/Electric Bills: No Difficulty Paying for Meds: No Currently Unemployed: No Education: Trade/Vocational Certificate Difficulty w/ Childcare or Family Care: No Living arrangements: with family Additional living arrangements comments: [facility] CHILD Occupation/Education: occupation 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 Gender identity (if verbalized by the patient): Male Spiritual care concerns: No Meds Home Medications and Allergies Home Medications ?Medication ?Instructions ?Recorded ?Confirmed ?Type sildenafil 25 mg tablet 25 mg PO DAILY PRN Erectile 04/10/23 04/16/25 History Dysfunction amlodipine 5 mg tablet See Rx Instructions .Route 0 11/09/24 04/22/25 Rx .COMPLEX #90 tabs lisinopril 20 1 tablet PO DAILY #30 tabs 0 03/16/25 04/22/25 Rx mg-hydrochlorothiazide 25 mg tablet tirzepatide (weight loss) 7.5 7.5 mg (0.5 mL) subcut W EEKLY #2 mL 04/08/25 04/22/25 Rx mg/0.5 mL subcutaneous pen injector (ZepbZixi) mupirocin 2 % topical ointment 1 applic topical BID #2 2 grams 04/16/25 04/22/25 Rx (Centany) clindamycin HCl 300 mg capsule mg PO Q6H 04/22/25 His tory Allergies Allergy/AdvReac Type Severity Reaction Status Date / Time Penicillins Allergy Mild Hives Verified 04/22/25 06:08 Exam Narrative: Incision appears well healed Full strength in legs with exception of left dorsiflexion 4-/5, EHL 3/5 Decreased sensation in lateral leg below knee and foot Negative straight leg raise Negative Tinel's at fibular head Unless otherwise stated above, the patient's physical exam is as follows: General: -Well developed and well nourished. No a cute distress. Cooperative with exam. Mental status: -Awake and oriented to person, place, an d time. Affect is normal. -Fund of knowledge appropriate -Recent and remote memory are intact -Attention span and concentration appear normal -Language function is normal -There is no evidence of aphasia in conv ersational speech. Cranial nerves: -CN II: Visual carrizales full to bedside co nfrontation -CN III, IV, : Pupils equal, round, an d reactive to light; extraocular movements, no ptosis, no nystagmus -CN V: Facial sensation intact in V1 thr ough V3 distributions -CN VII: Face symmetric -CN VIII: Hearing intact to conversation al speech -CN IX, X: Palate elevates symmetrically ; normal phonation -CN XI: Symmetric full strength of story ocleidomastoid and trapezius muscles -CN XII: Tongue protrudes midline Integumentary: -No obvious skin lesions or masses Motor: -Muscle tone normal without spasticity o f flaccidity. No atrophy. No fasciculations. -No pronator drift -Right upper extremity: deltoid 5/5, bic eps 5/5, triceps 5/5, wrist extensors 5/5, wrist flexors 5/5, intrinsics 5/5 -Left upper extremity: deltoid 5/5, ty ps 5/5, triceps 5/5, wrist extensors 5/5, wrist flexors 5/5, intrinsics 5/5 -Right lower extremity: iliopsoas 5/5, q uadriceps 5/5, hamstrings 5/5, tibialis anterior 5/5, gastroc-soleus 5/5, EHL 5/5 -Left lower extremity: iliopsoas 5/5, qu adriceps 5/5, hamstrings 5/5, tibialis anterior 5/5, gastroc-soleus 5/5, EHL 5/5 Sensory: -Intact to light touch throughout -Normal proprioception throughout Reflexes: -1-2+ DTR's throughout -No Ku's, clonus, or Babinski bilat erally Musculoskeletal: -Lumbar spine: no tenderness to palpatio n, no pain, and normal lumbosacral spine movements -[id number] test negative -Hip: normal range of motion, no crepitu s bilaterally. No pain reproduced on MARISSA or FAIR testing bilaterally -Knee: no instability, subluxation or la xity, and no crepitus bilaterally I personally reviewed the MRI lumbar spine which shows moderate central stenosis at L4-5 with persistent left paracentral broad-based disc bulge contributing to lateral recess stenosis Assessment and Plan Assessment and plan (1) Acquired left foot drop: Code(s): M21.372 - Foot drop, left foot Status: Acute (2) Spinal stenosis of lumbar region with radiculopathy: Code(s): M48.061 - Spinal stenosis, lumbar region without neurogenic claudication; M54.16 - Radiculopathy, lumbar region Status: Acute Plan Mr. Cardona is a 39-year-old male who underwent a left L4-5 microdiskectomy in September who has had recurrence of his preoperative pain in the lateral left leg and foot below the knee. His footdrop is stable. He had been doing physical therapy at which time his pain recurred. We have tried a Medrol Dosepak which did not give him any significant relief. he returns today with an updated MRI lumbar spine showing moderate central stenosis and persistent broad-based disc bulge with continue left paracentral lateral recess stenosis. I do believe that the disc bulge looks a bit smaller than it did compared to his preoperative MRI. We talked about treatment options including starting a medication like gabapentin, referring him for another epidural steroid injection, or proceeding with additional surgery. We discussed surgery options including a full laminectomy verses larger operation in the form of an L4-5 TLIF. Given his BMI over 45 and young age, I am not enthusiastic about as fusion type of operation. I did offer him surgery in the form of a L4-5 laminectomy with possible revision microdiskectomy. We discussed the surgery in detail including risks, expected recovery, and restrictions after surgery. We discussed the possibility that his foot function may not recover despite this as his preoperative EMG showed severe left L5 radiculopathy. We discussed the higher risk of CSF leak with a redo operation at the same level. He expressed understanding of this and ultimately wished to proceed with surgery as discussed.
[2025-04-22] MEDS: ceFAZolin 2 GM in SODIUM CHLORIDE 0.9% IV 50 ML 100 ML IVPB (07:26)
--- NOTE | 2025-04-22 09:51 | P.OPB_ITS ---
Procedure Note - Brief Procedure Note - Brief Date of procedure: 04/22/25 left foot drop, spinal stenosis with radiculopathy Post-op diagnosis: Same Procedure performed: L4-5 laminectomy Surgeon: Julia Hawk MD Business Functional Analyst: Quiana Anesthesia: GETShakila Estimated blood loss (mL): 25 Drains: No Packing: No Pathology: None sent Complications: None Condition: Stable Disposition: PACU
--- NOTE | 2025-04-22 10:07 | SUR.PHASEI ---
1005 - Dr. Hawk at bedside, checking neuro status
[2025-04-22] MEDS: oxyCODONE HCL (*CRX) 5 MG TAB IR PO (11:09)
--- NOTE | 2025-04-22 16:58 | W.PM.PROC2 ---
Procedure Note - Detailed Date of Procedure 04/22/25 Pre-op Diagnosis left foot drop, spinal stenosis with radiculopathy Post-op Diagnosis Same Procedure Performed L4-5 laminectomy Use of microscope for microsurgical dissection Use of C-arm for fluroscopy Surgeon Julia Hawk MD Computer Processing Scheduler Quiana Anesthesia General Description of Procedure The patient was brought to the operating room, and general anesthesia was induced. The patient was placed prone on the Kody frame, and all pressure points were padded. Compression devices were placed on the patient's calves. The C-arm was brought onto the field to localize the appropriate disc space and assist with incisional planning. The previous incision was marked. The area was prepped and draped in usual sterile fashion. A time out was conducted, and pre-operative antibiotics were administered. Local anesthesia was injected into the planned incision. A midline skin incision was opened with a 10-blade scalpel, and dissection was carried down with the monopolar cautery to open the fascia on either side of midline. Once the spinous processes were located, a subperiosteal dissection was performed to expose the lamina bilaterally. A self-retaining retractor was placed. The C-arm was brought in to confirm the correct level. It should be noted that the patient has transitional anatomy on the MRI. I spent extensive time reviewing the MRI and xrays taken intra-operatively to verify that the correct level was being addressed. The microscope was draped and brought into the field for microsurgical dissection. The spinous process of L4 was removed with a Leksell. The lamina was thinned with a drill until the the ligamentum was exposed. Remaining lamina was removed with kerrison rongeurs. Some of the ligamentum was noted to be calcified on the left side. This was from the dura and elevated. A Woodsen was used to verify adequate decompression at the cranial and caudal aspects of the decompression as well as into the foramen. I attempted to access the ventral epidural space which was difficult due to scarring and large epidural veins. Ultimately, I elected not to attempt the microdiskectomy to avoid causing a CSF leak. The thecal sac and lateral recess appeared well decompressed. Hemostasis was ensured with the bipolar, surgiflo, and cottonoids, and the area was copiously irrigated. No evidence of CSF leak was noted. The fascia was closed with 0-Vicryl in an interrupted fashion. The soft tissue was again copiously irrigated. The dermis was closed with 2-0 then 3-0 interrupted Vicryl. The skin was closed with 4-0 monocryl. Skin glue was applied. The patient was returned supine on the stretcher, extubated, and transferred to PACU without incident. Billing codes: 08876, [id number] Estimated Blood Loss 25 Drains No Packing No Pathology None sent Complications None Condition Stable Disposition PACU [facility] Billing Surgery - Charge Forward: Surgery Billing
== END 2025-04-22 12:00 | disposition home or self-care (01) ==
PROVIDERS: PCP Family Medicine; Visit Provider Neurological Surgery
PROC: (CPT 63005; principal; 2025-04-22 07:30)
DX: M48.061 Spinal stenosis, lumbar region without neurogenic claudication (principal); M21.372 Foot drop, left foot; G47.33 Obstructive sleep apnea (adult) (pediatric); I10 Essential (primary) hypertension; F41.9 Anxiety disorder, unspecified; F17.210 Nicotine dependence, cigarettes, uncomplicated; F17.290 Nicotine dependence, other tobacco product, uncomplicated; E66.01 Morbid (severe) obesity due to excess calories; Z68.41 Body mass index [BMI] 40.0-44.9, adult; Z79.85 Long-term (current) use of injectable non-insulin antidiabetic drugs; Z98.890 Other specified postprocedural states
CPT/HCPCS: 63047; 99199; J0690; A9270; J0330; J1100; J1171; J2003; J2250; J2405; J2704; J3010; J7120